=== PATIENT | female | born 1995 | race African-American/Black ===

== ENCOUNTER 2021-03-17 17:21 | Emergency (ER) | payer BC, OTHER ==
[2021-03-17 17:32] VITALS: BP 131/74; PULSE 98; TEMP 98.4; BMI 41.0
[2021-03-17] MEDS ORDERED: DEXAMETHASONE LIQUID 0.5 MG/5 ML PO ONE (17:49)
[2021-03-17] MEDS ORDERED: ACETAMINOPHEN 325 MG TABLET (FP) PO ONE (17:49)
[2021-03-17] MEDS ORDERED: ACETAMINOPHEN 325 MG TABLET (FP) ONE (17:50)
[2021-03-17] MEDS ORDERED: DEXAMETHASONE SOD PHOSPHATE 10 MG/1 ML VIAL ONE (17:50)
== END 2021-03-17 18:18 ==
LOC: JER 17:21
DX: J02.9 Acute pharyngitis, unspecified (principal)
CPT/HCPCS: 87880; 99284-25; C9803; U0003; U0005

== ENCOUNTER 2021-11-30 08:41 | Emergency (ER) | payer OTHER ==
[2021-11-30 09:06] VITALS: BP 131/73; PULSE 88; TEMP 98.3; BMI 38.0
== END 2021-11-30 10:08 | disposition home or self-care (01) ==
LOC: JER 08:41
DX: U07.1 COVID-19 (principal)
CPT/HCPCS: 0241U-QW; 99283-25

== ENCOUNTER 2022-03-18 08:23 | Emergency (ER) | payer OTHER ==
[2022-03-18 08:48] VITALS: BP 127/85; PULSE 96; RESP 18; TEMP 99.6; BMI 37.8
== END 2022-03-18 11:17 | disposition home or self-care (01) ==
LOC: JER 08:23
DX: R05.1 Acute cough (principal); R09.81 Nasal congestion; J09.X2 Influenza due to identified novel influenza A virus with other respiratory manifestations
CPT/HCPCS: 0241U-QW; 99283-25